=== PATIENT | male | born 1930 | race Caucasian/White ===

== ENCOUNTER 2018-01-10 05:56 | Inpatient (IN) | payer MEDICARE ==
[~2018-01-10] VITALS: Ht 182.9 cm; Wt 91.0 kg
[~2018-01-10 05:56] MED LIST: ASPI81TA30 PO; ATEN100T PO; CALC-212 PO; FELO10TA3 PO; FINA5TAB11 PO; HYDR25TA4 PO; LEVO125T PO; NITR0.4T48 SL; POTA10TA10 PO; SIMV20TA PO
[2018-01-10 06:47] LABS: BASOPHILS % (AUTO) 0.3 % (0-1); EOSINOPHILS # (AUTO) 0.1 X10'3 (0-0.9); EOSINOPHILS % (AUTO) 1.3 % (0-6); HEMATOCRIT 38.2 % (42.0-52.0); LYMPHOCYTES # (AUTO) 1.6 X10'3 (1.1-4.8); LYMPHOCYTES % (AUTO) 15.9 % (21-51); MEAN CORPUSCULAR HEMOGLOBIN 29.8 PG (27.0-31.0); MEAN CORPUSCULAR HGB CONC 34.1 % (33.0-36.5); MEAN CORPUSCULAR VOLUME 87.5 FL (78-98); MEAN PLATELET VOLUME 7.9 FL (7.4-10.4); MONOCYTES # (AUTO) 0.9 X10'3 (0-0.9); MONOCYTES % (AUTO) 9.4 % (2-12); NEUTROPHILS # (AUTO) 7.2 X10'3 (1.8-7.7); NEUTROPHILS % (AUTO) 73.1 % (42-75); PLATELET COUNT 200 X10'3 (140-440); RED BLOOD COUNT 4.37 X10'6 (4.70-6.10); RED CELL DISTRIBUTION WIDTH 16.7 % (11.5-14.5); WHITE BLOOD COUNT 9.9 X10'3 (4.5-11.0)
[2018-01-10 06:51] LABS: INR 1.8 INR; PARTIAL THROMBOPLASTIN TIME 33 SECONDS (22-32); PROTHROMBIN TIME 18.6 SECONDS (9.0-12.0)
[2018-01-10] MEDS ORDERED: CefTRIAXone 2gm/NS 100ml IVPB 100 ML IV ONE (06:55)
[2018-01-10] MEDS ORDERED: azithromycin/NS 500mg/250ml 250 ML IV ONE (06:55)
[2018-01-10 07:07] LABS: ALANINE AMINOTRANSFERASE 24 U/L (12-78); ALBUMIN 3.8 G/DL (3.4-5.0); ALBUMIN/GLOBULIN RATIO 1.1 (1.1-1.5); ALKALINE PHOSPHATASE 113 IU/L (46-116); ANION GAP 11 (8-16); ASPARTATE AMINO TRANSFERASE 16 U/L (10-37); BILIRUBIN,TOTAL 1.2 MG/DL (0.1-1.0); BLOOD UREA NITROGEN 16 MG/DL (7-18); BUN/CREATININE RATIO 10.7 (5.4-32.0); CALCIUM 9.1 MG/DL (8.5-10.1); CHLORIDE 102 MMOL/L (99-107); GLUCOSE 115 MG/DL (70-104); POTASSIUM 3.7 MMOL/L (3.5-5.1); SODIUM 140 MMOL/L (135-145); TOTAL CARBON DIOXIDE 27.5 MMOL/L (24-32); TOTAL PROTEIN 7.4 G/DL (6.4-8.2); eGFR 44 ML/MIN
[2018-01-10] MEDS ORDERED: albuterol 2.5 MG/3 ML nebule NEB ONE (07:15)
[2018-01-10 07:46] LABS: ABG BASE EXCESS 1.8 mmol/L (-2.0-3.0); ABG HCO3 24.8 mmol/L (22.0-26.0); ABG OXYGEN SATURATION 89.1 % (95-98); ABG PCO2 (T) 33.7 mmHg (35.0-48.0); ABG PH (T) 7.484 (7.350-7.450); ABG PO2 (T) 51.6 mmHg (83-108); ALLEN'S TEST Positive; FCOHb 1.1 % (0.5-1.5); FO2Hb 88.1 % (94-100); RESPIRATORY RATE (OBSERVED) 20 b/min; TOTAL HEMOGLOBIN 12.8 G/dl (14.0-18.0)
[2018-01-10] MEDS ORDERED: magnesium 4gm in 100ml NS 100 ML IV PRN (11:15)
[2018-01-10] MEDS ORDERED: HYDROcodone/acetaminophen 5mg/325mg tablet PO PRN (11:15)
[2018-01-10] MEDS ORDERED: mag hydrox/Alum hydrox/simeth 30ml oral suspension PO PRN (11:15)
[2018-01-10] MEDS ORDERED: HYDROcodone/acetaminophen 10/325mg tab PO PRN (11:15)
[2018-01-10] MEDS ORDERED: morphine 2 MG/ML inj. syringe IV PRN ×2 (11:15)
[2018-01-10] MEDS ORDERED: magnesium Cl slow-release 64mg tablet PO PRN (11:15)
[2018-01-10] MEDS ORDERED: magnesium 2GM in 50ml NS 50 ML IV PRN (11:15)
[2018-01-10] MEDS ORDERED: ondansetron/PF 4mg/2ml inj IV PRN (11:15)
[2018-01-10] MEDS ORDERED: potassium Cl 40MEQ/NS 500ml 500 ML IV PRN ×2 (11:15)
[2018-01-10] MEDS ORDERED: potassium Cl 20 mEq SR tablet PO PRN ×2 (11:15)
[2018-01-10] MEDS ORDERED: magnesium hydroxide 30ml (MOM) UD suspension PO PRN (11:15)
[2018-01-10] MEDS ORDERED: acetaminophen 325mg tablet PO PRN ×2 (11:15)
[2018-01-10] MEDS ORDERED: SYN0.088T PO (11:55)
[2018-01-10] MEDS ORDERED: COU2.5T PO (11:55)
[2018-01-10] MEDS ORDERED: COU4T PO (11:55)
[2018-01-10] MEDS ORDERED: FURO-150 PO (11:55)
[2018-01-10] MEDS ORDERED: ACET500C5 PO (11:55)
[2018-01-10] MEDS ORDERED: POTA10TA10 PO (11:55)
[2018-01-10] MEDS ORDERED: MAG355OR36 PO (11:55)
[2018-01-10] MEDS ORDERED: AMLO2.5T2 PO (11:55)
[2018-01-10] MEDS ORDERED: ATOR10TA87 PO (11:55)
[2018-01-10] MEDS ORDERED: MULT-685 PO (11:55)
[2018-01-10] MEDS ORDERED: FINA5TAB11 PO (11:55)
[2018-01-10] MEDS ORDERED: ATEN-169 PO (11:55)
[2018-01-10] MEDS ORDERED: ASPI-1265 PO (11:55)
[2018-01-10] MEDS ORDERED: NITR0.4T51 SL (11:55)
[2018-01-10] MEDS ORDERED: LACT1CAP65 PO (11:55)
[2018-01-10] MEDS ORDERED: MAGN400O6 PO (11:55)
[2018-01-10] MEDS ORDERED: CITA20TA11 PO (11:55)
[2018-01-10] MEDS ORDERED: CALC430T PO (11:55)
[2018-01-10] MEDS: albuterol 2.5 MG/3 ML nebule NEB SCH ×4 (13:51→23:53)
[2018-01-10] MEDS: normal saline 1000ml 1,000 ML IV SCH (14:12)
[2018-01-10 16:40] VITALS: BP 123/65
[2018-01-10 19:00] VITALS: BP 115/76
[2018-01-10] MEDS: methylPREDNISolone sod succ 125mg/2ml vial IV SCH (21:04)
[2018-01-10] MEDS: temazepam 15mg capsule PO PRN (21:04)
[2018-01-10] MEDS: docusate sod 100mg capsule PO SCH (21:05)
[2018-01-10] MEDS: heparin, porcine 5000 units/ml vial SQ SCH (21:08)
[2018-01-11] VITALS: BP 109/55
[2018-01-11 00:15] VITALS: BP 115/66
[2018-01-11] MEDS ORDERED: diltiazem 5mg/ml 5ml inj. IV ONE ×2 (02:05→03:35)
[2018-01-11] MEDS: albuterol 2.5 MG/3 ML nebule NEB SCH ×6 (03:11→23:55)
[2018-01-11 04:00] VITALS: BP 107/59
[2018-01-11 05:57] LABS: BASOPHILS % (AUTO) 0.1 % (0-1); EOSINOPHILS # (AUTO) 0.1 X10'3 (0-0.9); EOSINOPHILS % (AUTO) 0.8 % (0-6); HEMATOCRIT 34.4 % (42.0-52.0); HEMOGLOBIN 11.8 g/dl (14.0-17.9); LYMPHOCYTES # (AUTO) 0.4 X10'3 (1.1-4.8); LYMPHOCYTES % (AUTO) 5.3 % (21-51); MEAN CORPUSCULAR HEMOGLOBIN 29.7 PG (27.0-31.0); MEAN CORPUSCULAR HGB CONC 34.1 % (33.0-36.5); MEAN CORPUSCULAR VOLUME 87.2 FL (78-98); MEAN PLATELET VOLUME 7.8 FL (7.4-10.4); MONOCYTES # (AUTO) 0.1 X10'3 (0-0.9); MONOCYTES % (AUTO) 1.2 % (2-12); NEUTROPHILS # (AUTO) 6.6 X10'3 (1.8-7.7); NEUTROPHILS % (AUTO) 92.6 % (42-75); PLATELET COUNT 183 X10'3 (140-440); RED BLOOD COUNT 3.95 X10'6 (4.70-6.10); RED CELL DISTRIBUTION WIDTH 16.7 % (11.5-14.5); WHITE BLOOD COUNT 7.2 X10'3 (4.5-11.0)
[2018-01-11 06:13] LABS: ALBUMIN 3.3 G/DL (3.4-5.0); ANION GAP 12 (8-16); BLOOD UREA NITROGEN 22 MG/DL (7-18); CALCIUM 9.3 MG/DL (8.5-10.1); CHLORIDE 104 MMOL/L (99-107); CREATININE 1.57 MG/DL (0.60-1.10); GLUCOSE 178 MG/DL (70-104); POTASSIUM 3.9 MMOL/L (3.5-5.1); SODIUM 141 MMOL/L (135-145); TOTAL CARBON DIOXIDE 24.9 MMOL/L (24-32); eGFR 42 ML/MIN
[2018-01-11] MEDS: heparin, porcine 5000 units/ml vial SQ SCH ×2 (08:00→20:19)
[2018-01-11] MEDS: finasteride 5mg tablet PO SCH (08:00)
[2018-01-11] MEDS: K and/or MAG REPLACEMENT MC SCH (08:00)
[2018-01-11] MEDS ORDERED: magnesium hydroxide 30ml (MOM) UD suspension PO PRN (08:00)
[2018-01-11] MEDS: normal saline 1000ml 1,000 ML IV SCH (08:44)
[2018-01-11] MEDS: cefTRIAXone 1g/NS 100ml IVPB 100 ML IV SCH (08:45)
[2018-01-11] MEDS: docusate sod 100mg capsule PO SCH ×2 (08:47→20:18)
[2018-01-11] MEDS: aspirin 81mg tab.chew PO SCH (08:47)
[2018-01-11] MEDS: citalopram 20mg tablet PO SCH (08:47)
[2018-01-11] MEDS: pantoprazole 40mg Tablet.DR PO SCH (08:47)
[2018-01-11] MEDS: methylPREDNISolone sod succ 125mg/2ml vial IV SCH ×2 (08:47→20:18)
[2018-01-11] MEDS: potassium Cl 20 mEq SR tablet PO SCH (08:50)
[2018-01-11] MEDS: atenolol 50mg tablet PO SCH (08:51)
[2018-01-11] MEDS: furosemide 20MG tablet PO SCH (08:51)
[2018-01-11] MEDS: atorvastatin 10mg tablet PO SCH (08:51)
[2018-01-11] MEDS: amLODIPine 2.5mg tablet PO SCH (08:51)
[2018-01-11] MEDS: levoTHYROXINE 125mcg tablet PO SCH (08:51)
[2018-01-11 08:59] VITALS: BP 129/67
[2018-01-11 09:12] LABS: INR 1.6 INR; PROTHROMBIN TIME 15.9 SECONDS (9.0-12.0)
[2018-01-11 12:27] VITALS: BP 126/71
[2018-01-11] MEDS: lactobacillus rhamnosus 10,000 MMU CELLS/CAPSULE PO SCH (17:07)
[2018-01-11 19:54] VITALS: BP 113/71
[2018-01-12] VITALS: BP 120/76
[2018-01-12] MEDS: normal saline 1000ml 1,000 ML IV SCH (01:15)
[2018-01-12] MEDS: albuterol 2.5 MG/3 ML nebule NEB SCH ×6 (03:27→23:19)
[2018-01-12 05:28] LABS: BASOPHILS % (AUTO) 0 % (0-1); EOSINOPHILS # (AUTO) 0.1 X10'3 (0-0.9); EOSINOPHILS % (AUTO) 0.6 % (0-6); HEMATOCRIT 34.5 % (42.0-52.0); HEMOGLOBIN 11.7 g/dl (14.0-17.9); LYMPHOCYTES # (AUTO) 0.7 X10'3 (1.1-4.8); LYMPHOCYTES % (AUTO) 4.7 % (21-51); MEAN CORPUSCULAR HEMOGLOBIN 29.7 PG (27.0-31.0); MEAN CORPUSCULAR VOLUME 87.2 FL (78-98); MEAN PLATELET VOLUME 8.1 FL (7.4-10.4); MONOCYTES # (AUTO) 0.3 X10'3 (0-0.9); NEUTROPHILS # (AUTO) 12.9 X10'3 (1.8-7.7); NEUTROPHILS % (AUTO) 92.7 % (42-75); PLATELET COUNT 202 X10'3 (140-440); RED BLOOD COUNT 3.95 X10'6 (4.70-6.10); RED CELL DISTRIBUTION WIDTH 16.6 % (11.5-14.5); WHITE BLOOD COUNT 13.9 X10'3 (4.5-11.0)
[2018-01-12 06:16] LABS: INR 1.5 INR; PROTHROMBIN TIME 15.4 SECONDS (9.0-12.0)
[2018-01-12 06:25] LABS: ALBUMIN 3.1 G/DL (3.4-5.0); ANION GAP 12 (8-16); BLOOD UREA NITROGEN 34 MG/DL (7-18); BUN/CREATININE RATIO 22.4 (5.4-32.0); CALCIUM 9.4 MG/DL (8.5-10.1); CHLORIDE 107 MMOL/L (99-107); CREATININE 1.52 MG/DL (0.60-1.10); GLUCOSE 149 MG/DL (70-104); MAGNESIUM 2.1 MG/DL (1.5-2.4); POTASSIUM 3.8 MMOL/L (3.5-5.1); SODIUM 143 MMOL/L (135-145); TOTAL CARBON DIOXIDE 24.1 MMOL/L (24-32); eGFR 43 ML/MIN
[2018-01-12] MEDS: furosemide 20MG tablet PO SCH (08:00)
[2018-01-12] MEDS: K and/or MAG REPLACEMENT MC SCH (08:00)
[2018-01-12] MEDS: amLODIPine 2.5mg tablet PO SCH (08:00)
[2018-01-12 08:37] VITALS: BP 94/53
[2018-01-12] MEDS: docusate sod 100mg capsule PO SCH ×2 (08:54→19:39)
[2018-01-12] MEDS: citalopram 20mg tablet PO SCH (08:54)
[2018-01-12] MEDS: aspirin 81mg tab.chew PO SCH (08:54)
[2018-01-12] MEDS: atorvastatin 10mg tablet PO SCH (08:55)
[2018-01-12] MEDS: atenolol 50mg tablet PO SCH (08:57)
[2018-01-12] MEDS: finasteride 5mg tablet PO SCH (08:58)
[2018-01-12] MEDS: heparin, porcine 5000 units/ml vial SQ SCH ×2 (08:58→19:40)
[2018-01-12] MEDS: cefTRIAXone 1g/NS 100ml IVPB 100 ML IV SCH (08:59)
[2018-01-12] MEDS: lactobacillus rhamnosus 10,000 MMU CELLS/CAPSULE PO SCH ×2 (09:13→15:58)
[2018-01-12] MEDS: potassium Cl 20 mEq SR tablet PO SCH (09:13)
[2018-01-12] MEDS: pantoprazole 40mg Tablet.DR PO SCH (09:13)
[2018-01-12] MEDS: levoTHYROXINE 125mcg tablet PO SCH (09:13)
[2018-01-12] MEDS: methylPREDNISolone sod succ 125mg/2ml vial IV SCH (09:14)
[2018-01-12 11:30] VITALS: BP 121/74
[2018-01-12 18:27] VITALS: BP 121/74
[2018-01-12] MEDS: methylPREDNISolone sod succ/PF 40mg inj. IV SCH (19:40)
[2018-01-12] MEDS: nystatin 15 GM powder TP SCH (20:44)
[2018-01-12] MEDS: warfarin 4mg tablet PO SCH (20:48)
[2018-01-12] MEDS: warfarin 1mg tablet PO SCH (20:48)
[2018-01-13] VITALS: BP 118/67
[2018-01-13] MEDS: albuterol 2.5 MG/3 ML nebule NEB SCH ×6 (03:21→23:31)
[2018-01-13 05:59] LABS: BASOPHILS % (AUTO) 0 % (0-1); EOSINOPHILS # (AUTO) 0.3 X10'3 (0-0.9); EOSINOPHILS % (AUTO) 2.1 % (0-6); HEMATOCRIT 35.8 % (42.0-52.0); HEMOGLOBIN 12.3 g/dl (14.0-17.9); LYMPHOCYTES # (AUTO) 0.6 X10'3 (1.1-4.8); LYMPHOCYTES % (AUTO) 3.6 % (21-51); MEAN CORPUSCULAR HEMOGLOBIN 29.8 PG (27.0-31.0); MEAN CORPUSCULAR HGB CONC 34.3 % (33.0-36.5); MEAN CORPUSCULAR VOLUME 86.9 FL (78-98); MEAN PLATELET VOLUME 7.8 FL (7.4-10.4); MONOCYTES # (AUTO) 0.5 X10'3 (0-0.9); MONOCYTES % (AUTO) 2.7 % (2-12); NEUTROPHILS # (AUTO) 15.5 X10'3 (1.8-7.7); NEUTROPHILS % (AUTO) 91.6 % (42-75); PLATELET COUNT 267 X10'3 (140-440); RED BLOOD COUNT 4.12 X10'6 (4.70-6.10); RED CELL DISTRIBUTION WIDTH 16.9 % (11.5-14.5); WHITE BLOOD COUNT 16.9 X10'3 (4.5-11.0)
[2018-01-13 06:20] LABS: ALBUMIN 3.2 G/DL (3.4-5.0); ANION GAP 11 (8-16); BLOOD UREA NITROGEN 42 MG/DL (7-18); BUN/CREATININE RATIO 27.8 (5.4-32.0); CALCIUM 9.3 MG/DL (8.5-10.1); CHLORIDE 106 MMOL/L (99-107); CREATININE 1.51 MG/DL (0.60-1.10); GLUCOSE 129 MG/DL (70-104); MAGNESIUM 2.2 MG/DL (1.5-2.4); POTASSIUM 3.9 MMOL/L (3.5-5.1); SODIUM 142 MMOL/L (135-145); TOTAL CARBON DIOXIDE 24.9 MMOL/L (24-32); eGFR 44 ML/MIN
[2018-01-13 06:23] LABS: INR 1.6 INR; PROTHROMBIN TIME 16.7 SECONDS (9.0-12.0)
[2018-01-13 07:21] VITALS: BP 126/76
[2018-01-13] MEDS: cefTRIAXone 1g/NS 100ml IVPB 100 ML IV SCH (07:59)
[2018-01-13] MEDS: amLODIPine 2.5mg tablet PO SCH (08:00)
[2018-01-13] MEDS: levoTHYROXINE 125mcg tablet PO SCH (08:00)
[2018-01-13] MEDS: docusate sod 100mg capsule PO SCH ×2 (08:00→20:04)
[2018-01-13] MEDS: atorvastatin 10mg tablet PO SCH (08:00)
[2018-01-13] MEDS: aspirin 81mg tab.chew PO SCH (08:00)
[2018-01-13] MEDS: lactobacillus rhamnosus 10,000 MMU CELLS/CAPSULE PO SCH ×2 (08:00→16:30)
[2018-01-13] MEDS: citalopram 20mg tablet PO SCH (08:00)
[2018-01-13] MEDS: potassium Cl 20 mEq SR tablet PO SCH (08:00)
[2018-01-13] MEDS: atenolol 50mg tablet PO SCH (08:01)
[2018-01-13] MEDS: furosemide 20MG tablet PO SCH (08:01)
[2018-01-13] MEDS: methylPREDNISolone sod succ/PF 40mg inj. IV SCH ×2 (08:02→20:05)
[2018-01-13] MEDS: heparin, porcine 5000 units/ml vial SQ SCH (08:05)
[2018-01-13] MEDS: finasteride 5mg tablet PO SCH (08:19)
[2018-01-13] MEDS: nystatin 15 GM powder TP SCH ×3 (08:19→21:00)
[2018-01-13] MEDS: pantoprazole 40mg Tablet.DR PO SCH (08:19)
[2018-01-13] MEDS: K and/or MAG REPLACEMENT MC SCH (08:21)
[2018-01-13 12:05] VITALS: BP 118/73
[2018-01-13 19:00] VITALS: BP 122/74
[2018-01-13] MEDS: dextrose 5%-1/2 normal saline 1,000 ML IV SCH (19:42)
[2018-01-13] MEDS: ampicillin/sulbac 3gm/NS 100ml 100 ML IV SCH (20:10)
[2018-01-13] MEDS: warfarin 4mg tablet PO SCH (21:11)
[2018-01-13] MEDS: warfarin 1mg tablet PO SCH (21:12)
[2018-01-13] MEDS: temazepam 15mg capsule PO PRN (21:20)
[2018-01-14] VITALS: BP 105/58
[2018-01-14] MEDS: ampicillin/sulbac 3gm/NS 100ml 100 ML IV SCH ×4 (02:00→21:13)
[2018-01-14] MEDS: albuterol 2.5 MG/3 ML nebule NEB SCH ×6 (03:39→23:59)
[2018-01-14 07:23] VITALS: BP 131/81
[2018-01-14 07:42] LABS: INR 2.2 INR; PROTHROMBIN TIME 22.6 SECONDS (9.0-12.0)
[2018-01-14 07:55] LABS: BASOPHILS % (AUTO) 0 % (0-1); EOSINOPHILS # (AUTO) 0.2 X10'3 (0-0.9); EOSINOPHILS % (AUTO) 1.5 % (0-6); HEMATOCRIT 36.6 % (42.0-52.0); HEMOGLOBIN 12.5 g/dl (14.0-17.9); LYMPHOCYTES # (AUTO) 0.8 X10'3 (1.1-4.8); LYMPHOCYTES % (AUTO) 6.3 % (21-51); MEAN CORPUSCULAR HGB CONC 34.2 % (33.0-36.5); MEAN CORPUSCULAR VOLUME 87.8 FL (78-98); MEAN PLATELET VOLUME 7.7 FL (7.4-10.4); MONOCYTES # (AUTO) 0.4 X10'3 (0-0.9); MONOCYTES % (AUTO) 3.4 % (2-12); NEUTROPHILS # (AUTO) 11.3 X10'3 (1.8-7.7); NEUTROPHILS % (AUTO) 88.8 % (42-75); PLATELET COUNT 250 X10'3 (140-440); RED BLOOD COUNT 4.17 X10'6 (4.70-6.10); RED CELL DISTRIBUTION WIDTH 16.8 % (11.5-14.5); WHITE BLOOD COUNT 12.7 X10'3 (4.5-11.0)
[2018-01-14] MEDS: K and/or MAG REPLACEMENT MC SCH (08:00)
[2018-01-14 08:01] LABS: ALBUMIN 3.1 G/DL (3.4-5.0); ANION GAP 11 (8-16); BLOOD UREA NITROGEN 39 MG/DL (7-18); BUN/CREATININE RATIO 28.3 (5.4-32.0); CALCIUM 8.5 MG/DL (8.5-10.1); CHLORIDE 107 MMOL/L (99-107); CREATININE 1.38 MG/DL (0.60-1.10); GLUCOSE 122 MG/DL (70-104); MAGNESIUM 2.1 MG/DL (1.5-2.4); POTASSIUM 3.9 MMOL/L (3.5-5.1); SODIUM 144 MMOL/L (135-145); TOTAL CARBON DIOXIDE 26.2 MMOL/L (24-32); eGFR 49 ML/MIN
[2018-01-14] MEDS: levoTHYROXINE 125mcg tablet PO SCH (08:48)
[2018-01-14] MEDS: atenolol 50mg tablet PO SCH (08:48)
[2018-01-14] MEDS: furosemide 20MG tablet PO SCH (08:48)
[2018-01-14] MEDS: citalopram 20mg tablet PO SCH (08:48)
[2018-01-14] MEDS: amLODIPine 2.5mg tablet PO SCH (08:48)
[2018-01-14] MEDS: potassium Cl 20 mEq SR tablet PO SCH (08:49)
[2018-01-14] MEDS: atorvastatin 10mg tablet PO SCH (08:49)
[2018-01-14] MEDS: pantoprazole 40mg Tablet.DR PO SCH (08:49)
[2018-01-14] MEDS: methylPREDNISolone sod succ/PF 40mg inj. IV SCH ×2 (08:49→21:13)
[2018-01-14] MEDS: aspirin 81mg tab.chew PO SCH (08:49)
[2018-01-14] MEDS: lactobacillus rhamnosus 10,000 MMU CELLS/CAPSULE PO SCH ×2 (08:49→15:42)
[2018-01-14] MEDS: docusate sod 100mg capsule PO SCH ×3 (08:49→21:16)
[2018-01-14] MEDS ORDERED: ipratropium/albuterol 3ml nebule NEB PRN (08:55)
[2018-01-14] MEDS: finasteride 5mg tablet PO SCH (08:59)
[2018-01-14] MEDS: nystatin 15 GM powder TP SCH ×3 (09:01→21:14)
[2018-01-14 11:35] VITALS: BP 122/70
[2018-01-14] MEDS: dextrose 5%-1/2 normal saline 1,000 ML IV SCH (14:59)
[2018-01-14 19:00] VITALS: BP 144/87
[2018-01-15] VITALS (13 sets, daily range): BP systolic 107–158; BP diastolic 63–99
[2018-01-15] MEDS: ampicillin/sulbac 3gm/NS 100ml 100 ML IV SCH ×4 (01:42→21:03)
[2018-01-15] MEDS: albuterol 2.5 MG/3 ML nebule NEB SCH ×5 (03:16→20:24)
[2018-01-15 05:35] LABS: BASOPHILS % (AUTO) 0 % (0-1); EOSINOPHILS # (AUTO) 0.1 X10'3 (0-0.9); EOSINOPHILS % (AUTO) 1.3 % (0-6); HEMATOCRIT 36.3 % (42.0-52.0); HEMOGLOBIN 12.5 g/dl (14.0-17.9); LYMPHOCYTES # (AUTO) 0.7 X10'3 (1.1-4.8); LYMPHOCYTES % (AUTO) 6.3 % (21-51); MEAN CORPUSCULAR HEMOGLOBIN 29.9 PG (27.0-31.0); MEAN CORPUSCULAR HGB CONC 34.5 % (33.0-36.5); MEAN CORPUSCULAR VOLUME 86.6 FL (78-98); MEAN PLATELET VOLUME 7.4 FL (7.4-10.4); MONOCYTES # (AUTO) 0.4 X10'3 (0-0.9); MONOCYTES % (AUTO) 3.4 % (2-12); NEUTROPHILS # (AUTO) 10.3 X10'3 (1.8-7.7); PLATELET COUNT 266 X10'3 (140-440); RED BLOOD COUNT 4.19 X10'6 (4.70-6.10); RED CELL DISTRIBUTION WIDTH 16.6 % (11.5-14.5); WHITE BLOOD COUNT 11.6 X10'3 (4.5-11.0)
[2018-01-15 05:42] LABS: INR 2.8 INR; PROTHROMBIN TIME 27.7 SECONDS (9.0-12.0)
[2018-01-15 06:29] LABS: ALBUMIN 3.1 G/DL (3.4-5.0); ANION GAP 9 (8-16); BLOOD UREA NITROGEN 30 MG/DL (7-18); BUN/CREATININE RATIO 22.1 (5.4-32.0); CALCIUM 8.5 MG/DL (8.5-10.1); CHLORIDE 106 MMOL/L (99-107); CREATININE 1.36 MG/DL (0.60-1.10); GLUCOSE 131 MG/DL (70-104); MAGNESIUM 2.1 MG/DL (1.5-2.4); POTASSIUM 3.9 MMOL/L (3.5-5.1); SODIUM 143 MMOL/L (135-145); TOTAL CARBON DIOXIDE 27.7 MMOL/L (24-32); eGFR 49 ML/MIN
[2018-01-15] MEDS: pantoprazole 40mg Tablet.DR PO SCH (07:30)
[2018-01-15] MEDS: lactobacillus rhamnosus 10,000 MMU CELLS/CAPSULE PO SCH ×2 (07:30→16:41)
[2018-01-15] MEDS: methylPREDNISolone sod succ/PF 40mg inj. IV SCH ×2 (07:51→21:03)
[2018-01-15] MEDS: aspirin 81mg tab.chew PO SCH (07:57)
[2018-01-15] MEDS: docusate sod 100mg capsule PO SCH ×2 (07:58→21:04)
[2018-01-15] MEDS: K and/or MAG REPLACEMENT MC SCH (07:59)
[2018-01-15] MEDS: furosemide 20MG tablet PO SCH (08:00)
[2018-01-15] MEDS: levoTHYROXINE 125mcg tablet PO SCH (08:00)
[2018-01-15] MEDS: amLODIPine 2.5mg tablet PO SCH (08:00)
[2018-01-15] MEDS: atorvastatin 10mg tablet PO SCH (08:00)
[2018-01-15] MEDS: finasteride 5mg tablet PO SCH (08:00)
[2018-01-15] MEDS: potassium Cl 20 mEq SR tablet PO SCH (08:00)
[2018-01-15] MEDS: citalopram 20mg tablet PO SCH (08:00)
[2018-01-15] MEDS: nystatin 15 GM powder TP SCH ×3 (08:30→21:00)
[2018-01-15] MEDS: atenolol 25mg tablet PO SCH (09:54)
[2018-01-15] MEDS: dextrose 5%-1/2 normal saline 1,000 ML IV SCH (11:15)
[2018-01-15] MEDS ORDERED: normal saline 1000ml 1,000 ML IV SCH (12:26)
[2018-01-15] MEDS ORDERED: simethicone 40mg/0.6ml oral drops 30ml MC ONE (12:30)
[2018-01-15] MEDS ORDERED: fentaNYL/PF 50MCG/1 ML 2ML syringe IV PRN (12:30)
[2018-01-15] MEDS ORDERED: LIDOcaine Viscous 15ml cup PO ONE (12:30)
[2018-01-15] MEDS ORDERED: MIDAZolam 5mg/ml 2ml vial IV PRN (12:30)
[2018-01-15] MEDS ORDERED: fentaNYL/PF 50MCG/1 ML 2ML syringe ONE (14:49)
[2018-01-15] MEDS ORDERED: LIDOcaine Viscous 15ml cup ONE (14:50)
[2018-01-15] MEDS ORDERED: midazolam 2 mg/2 ml injection ONE (14:50)
[2018-01-15] MEDS: fluconazole-Diflucan 100MG/NS 50 ML IV SCH (17:40)
[2018-01-15] MEDS: pantoprazole 40 MG vial IV SCH (21:03)
[2018-01-16] VITALS: BP 141/96
[2018-01-16] MEDS: albuterol 2.5 MG/3 ML nebule NEB SCH ×4 (00:05→11:23)
[2018-01-16] MEDS: dextrose 5%-1/2 normal saline 1,000 ML IV SCH ×2 (00:35→09:08)
[2018-01-16] MEDS: ampicillin/sulbac 3gm/NS 100ml 100 ML IV SCH ×2 (02:17→07:33)
[2018-01-16 07:03] VITALS: BP 136/80
[2018-01-16] MEDS: citalopram 20mg tablet PO SCH (07:29)
[2018-01-16] MEDS: atorvastatin 10mg tablet PO SCH (07:29)
[2018-01-16] MEDS: K and/or MAG REPLACEMENT MC SCH (07:29)
[2018-01-16] MEDS: potassium Cl 20 mEq SR tablet PO SCH (07:29)
[2018-01-16] MEDS: furosemide 20MG tablet PO SCH (07:29)
[2018-01-16] MEDS: aspirin 81mg tab.chew PO SCH (07:29)
[2018-01-16] MEDS: amLODIPine 2.5mg tablet PO SCH (07:29)
[2018-01-16] MEDS: lactobacillus rhamnosus 10,000 MMU CELLS/CAPSULE PO SCH (07:29)
[2018-01-16] MEDS: atenolol 25mg tablet PO SCH (07:30)
[2018-01-16] MEDS: finasteride 5mg tablet PO SCH (07:30)
[2018-01-16] MEDS: levoTHYROXINE 125mcg tablet PO SCH (07:30)
[2018-01-16] MEDS: pantoprazole 40 MG vial IV SCH (07:33)
[2018-01-16] MEDS: methylPREDNISolone sod succ/PF 40mg inj. IV SCH (07:33)
[2018-01-16] MEDS: fluconazole-Diflucan 100MG/NS 50 ML IV SCH (09:06)
[2018-01-16] MEDS: nystatin 15 GM powder TP SCH (09:10)
== END 2018-01-16 11:48 | disposition left against medical advice (07) | DRG 177 ==
LOC: ER 05:56 → ED HOLD 10:55 → MED 3N 16:06
PROVIDERS: ADMIT Internal Medicine; ATTEND Internal Medicine
PROC: 0DB38ZX Excision of Lower Esophagus, Via Natural or Artificial Opening Endoscopic, Diagnostic (ICD-10-PCS; principal; 2018-01-15)
DX: J69.0 Pneumonitis due to inhalation of food and vomit (principal); J96.01 Acute respiratory failure with hypoxia; J86.0 Pyothorax with fistula; G93.40 Encephalopathy, unspecified; I13.0 Hypertensive heart and chronic kidney disease with heart failure and stage 1 through stage 4 chronic kidney disease, or unspecified chronic kidney disease; B37.81 Candidal esophagitis; I48.91 Unspecified atrial fibrillation; I50.9 Heart failure, unspecified; N18.3 Chronic kidney disease, stage 3 (moderate); E03.9 Hypothyroidism, unspecified; E78.5 Hyperlipidemia, unspecified; F03.90 Unspecified dementia, unspecified severity, without behavioral disturbance, psychotic disturbance, mood disturbance, and anxiety; I25.10 Atherosclerotic heart disease of native coronary artery without angina pectoris; K21.0 Gastro-esophageal reflux disease with esophagitis; K22.70 Barrett's esophagus without dysplasia; K44.9 Diaphragmatic hernia without obstruction or gangrene; Z53.21 Procedure and treatment not carried out due to patient leaving prior to being seen by health care provider; Z79.82 Long term (current) use of aspirin; Z79.01 Long term (current) use of anticoagulants; Z86.73 Personal history of transient ischemic attack (TIA), and cerebral infarction without residual deficits
CPT/HCPCS: 36415; 36600; 43239; 71045; 71046; 71250; 80048; 80053; 82803; 83605; 83735; 83880; 84484; 85018; 85025; 85610; 85730; 87040; 87070; 87502; 87503; 93005; 93306; 94640; 94760; 96365; 97110; 97116; 97162; 99291; A4315; A4620; A6213; A6449; C9113; G0500; J0295; J0456; J0696; J1450; J1644; J2250; J2920; J2930; J3010; J3490; J7030; J7042